=== PATIENT | male | born 1975 | race Caucasian/White ===

== ENCOUNTER 2025-05-22 03:47 | Day surgery (SDC) | payer BC, SELFPAY ==
--- NOTE | 2025-05-20 15:59 | PC.NURSE ---
[facility] has started construction of its new state of the art ER which will open Spring 2026. With this, we anticipate parking may be a challenge for some our surgical patients and families. Parking spaces are limited but are available for all Surgical, obstetrics, and ER patients sharing this lot. If you arrive and find you are having a hard time finding a parking space, please note that we understand the challenges, please drive around the hospital and park near Hospital Entrance 1. When you enter this entrance, you can ask a volunteer to direct or take you back to the surgical waiting area to check in. We appreciate everyone?s understanding of these expected challenges while we build for your future. Report to the Outpatient Waiting Room, entrance under the green pavilion located off [address], at time __1 PM on date __05/22/25 . Planned Procedure Time: _3 PM .? Time changes happen often and if your time is changed the preop area will call you the afternoon before. - You and your visitor will be asked to self-screen and do not enter if you have any COVID symptoms. Please call surgeon if you need to reschedule. - A mask is optional within the hospital at this time. Patients may have clear liquids (water, carbonated beverages, clear teas, apple juice) until 3 hours prior to surgery ( 1200 NOON) with a maximum of 20 ounces. - No food from midnight until time of surgery and no smoking, or chewing tobacco (or any form of nicotine). No chewing gum, candy or mints. Take only the following medications with a SIP of water on the morning of surgery: NONE DO NOT STOP ANY OF YOUR OTHER PRESCRIPTION MEDICATIONS PRIOR TO SURGERY EXCEPT THE FOLLOWING Hold all vitamins and supplements for 3 days per anesthesiologist. Medications to discontinue per physician NONE Date to take last dose Please no make-up, nail equatorial guinean, hairspray, perfume, deodorant, or body powder the day of surgery.? No jewelry (including any body piercings) or valuables the day of surgery, leave them at home.? Please take a shower or bath the night before, or the morning of, surgery with an antibacterial soap.? Wear comfortable, loose fitting clothing.? Children are encouraged to wear pajamas. - Jewelry must be removed prior to entering the operating room.? Rings and piercings that are not removed may be cut off. - The hospital will not accept responsibility for valuables.? - Please leave all valuables, including medications, at home the day of surgery. If you are going home after surgery, a licensed van driver must drive you home.? - NO public transportation without another adult if you receive anesthesia. - We recommend that an adult stay with you for 24 hours following discharge. - We also recommend that you do not drive, make important decision, drink alcoholic beverages, or take any drugs that were not prescribed by your health care provider for at least 24 hours after your discharge time. For Pediatric surgeries, we recommend two adults accompany the child home. Follow any additional instructions given to you from your surgeon. Telephone instructions given to __PATIENT and asked if any additional questions and then verbalized understanding. Patient advised to call surgeon office or pre surgery nurse liaison [phone] if any additional questions.
[2025-05-20 16:07] VITALS: BMI 33.7
--- OUTSIDE RECORDS SUMMARY | 2025-05-22 03:50 | XMS_ITS | Data Portability ---
Author Organization [place] [facility], Main Office Address [address] [place] [address] Assessment Encounter Date Assessment Date Assessment LastModified by Organization Details LastModified Time 10/04/2022 10/04/2022 Blood work Chantix side effects discussed in detail See me in 6 weeks General surgery skin [email or web address] Not available 10/10/2022 12:04:21 03/28/2023 03/28/2023 Urology Needs to go see the general surgeon for his lesion from last visit Get blood work that was not completed last Get colonoscopy Follow-up 6 weeks [email or web address] Not available 03/28/2023 21:55:28 04/19/2023 04/19/2023 large cyst posterior scalp. Options discussed with patient. We will schedule for excision under sedation. Risks and benefits were discussed. Risks include bleeding infection and numbness Not available 04/19/2023 12:19:55 05/17/2023 05/17/2023 Status post excision of posterior scalp cyst. Doing well. We will remove sutures. Follow up p.r.n. Not available 05/17/2023 11:48:04 Plan of Treatment Reminders Order Date Submit Date Provider Last Modified By Organization Details Last Modified Time Details Appointments None recorded. Lab CMP, serum or plasma 2022 023 [facility] (Lab), [address] [place], [address], 08:40:48 CBC w/ auto diff 2022 023 [facility] (Lab), [address] [place], [address], 3 08:40:48 lipid panel, serum 2022 023 [facility] (Lab), [address], [place], [address], 3 08:40:48 Referral urologist referral 2022 023 Dheeraj Galicia MD, [address] [facility] [address], [place], [address], 4 18:34:13 general surgeon referral 2022 023 [email or web address] Tu Tanner MD, [address], [address], [place], [address], 3 11:29:33 Procedures colonoscop y screening (PROC) 2022 023 [email or web address] 82 Dell Tsang MD, [address], [address], [place], [address], 4 14:27:34 Surgeries None recorded. Imaging None recorded. Medication Orders Chantix Continuing Month Box 1 mg tablet 2022 023 [email or web address] 45 [id number], [address], [place], [address], 3 12:17:50 Chantix Starting Month Box 0.5 mg (11)-1 mg (42) tablets in dose pack 2022 023 [email or web address] 45 [id number], [address], [place], [address], 3 12:17:47 Patient TargetsNo targets recorded. Patient InstructionsNo instructions recorded. Reason for Referral General Surgeon Referral for Skin lesion Referring Physician: Krzysztof Seay, Internal Medicine, Encounter Date: 10/04/2022 Urologist Referral for Lesio n of penis Referring Physician: Krzysztof Seay, Internal Medicine, Encounter Date: 03/28/2023 Results Created Date Observation Date Name Description Value Unit Range Abnormal Flag Note LastModifiedBy Organization Detail LastModifiedTime Result Notes None recorded. Problems Name Problem SNOMED Code Status Onset Date Resolution Date Notes Provider Name and Address Organization Details Recorded Time Viral gastroenterit is 638157043 Active Not Available [facility] 3 09:27:26 Nausea and vomiting 21270560 Active Not Available [facility] 3 09:27:26 Sinusitis 84104037 Active Not Available [facility] 3 09:27:26 Cervical radiculopathy 43818636 Active Not Available [facility] 3 09:27:26 Brachial neuritis 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 Procedures Surgical History Date Name Laterality Status Provider Name and Address Organization Details Recorded Time 05/09/2023 excision completed Candi Escalante MA [facility] 05/11/2023 11:36:27 Imaging Results None recorded. Procedure Notes None recorded. Medical Equipment None Reported. Allergies No known drug allergies Medications Name Sig Start Date Stop Date Status Note LastModified by Organization Details LastModified Time Singulair 10 mg tablet Take 1 tablet every day by oral route. 08/20 completed Not Available Not Available Not Available amoxicillin 500 mg capsule Take 1 capsule 3 times a day by oral route for 7 days. active Not Available Not Available No t Available tizanidine 4 mg tablet Take 1 tablet every day by oral route at bedtime. active Not Available Not Available No t Available hydrocodone 5 mg-acetamin ophen 325 mg tablet Take by oral route. 2014 active Not Available Not Available Not Avai lable Claritin 10 mg tablet Take 1 tablet as needed by oral route. 08/20 completed Not Available Not Available Not Available prednisone 20 mg tablet 12/01 completed Not Available Not Available Not Available Flonase 50 mcg/actuati on nasal spray,suspe nsion Inhale 2 sprays every day by intranasa l route in the evening. 08/20 completed Not Available Not Available Not Available acetaminoph en 300 mg-codeine 30 mg tablet TK 1 T PO BID PRN 12/01 completed Not Available Not Available Not Available tramadol 50 mg tablet Take 1 tablet twice a day by oral route. 2014 active Not Available Not Available Not Avai lable ketorolac 0.5 % eye drops active Not Available Not Available Not Available oxycodone-a cetaminophe n 5 mg-325 mg tablet TAKE 1 TABLET BY MOUTH EVERY 4 HOURS NEEDED FOR PAIN active Not Available Not Available No t Available Zofran 8 mg tablet Take 1 tablet every 8 hours by oral route as needed for 2 days. 01/29 completed Not Available Not Available Not Available prednisolon e acetate 1 % eye drops,suspe nsion active Not Available Not Available Not Available Zoloft 50 mg tablet Take 1 tablet every day by oral route. 01/29 completed Not Available Not Available Not Available ciprofloxac in 0.3 % eye drops active Not Available Not Available No t Available diclofenac sodium 75 mg tablet,juan daniel yed release Take 1 tablet twice a day by oral route. active Not Available Not Available No t Available methylpredn isolone 4 mg tablets in a dose pack active Not Available Not Available Not Available Lomotil 2.5 mg-0.025 mg tablet take 1 tablet after each loose stool , max of 6 per day 01/29 completed Not Available Not Available Not Available sildenafil (pulmonary hypertensio n) 20 mg tablet Take 2 tablets by mouth one hour prior to sex as needed. Do not take more than one dose every 24 hours. 11/26 completed Not Available Not Available Not Available varenicline tartrate 1 mg tablet TAKE 1 TABLET BY MOUTH TWICE A DAY DIRECTED active Not Available Not Available No t Available varenicline tartrate 0.5 mg (11)-1 mg (42) tablets in a dose pack USE DIRECTED active Not Available Not Available No t Available Vitals Date Recorded Body height Body mass index (BMI) Body weight Body temperature Heart rate Systolic And Diastolic Provider Name and Address Organization Details Last Updated DateTime 3 177.8 cm 33.1 kg/m2 143318. 84 g 98.1 [degF] 60 /min 118/72 mm[Hg] JESSICA Ordoñez [facility] [employer] 3 14:39:51 Date Recorded Body mass index (BMI) Body height Heart rate Body temperature Body weight Systolic And Diastolic Provider Name and Address Organization Details Last Updated DateTime 2 34.6 kg/m2 177.8 cm 78 /min 98.8 [degF] 366967. 76 g 122/80 mm[Hg] Not Available [facility] 3 15:16:45 Date Recorded Body height Body mass index (BMI) Body weight Body temperature Heart rate Systolic And Diastolic Provider Name and Address Organization Details Last Updated DateTime 3 177.8 cm 32.9 kg/m2 995735. 65 g 99.2 [degF] 65 /min 130/82 mm[Hg] JESSICA Ordoñez [facility] [employer] 3 12:20:14 Date Recorded Body height Body mass index (BMI) Body weight Body temperature Respiratory rate Heart rate Oxygen saturation Systolic And Diastolic Provider Name and Address Organization Details Last Updated DateTime 3 177.8 cm 32.9 kg/m2 091567. 65 g 99.2 [degF] 16 /min 81 /min 98 % 130/90 mm[Hg] Maki Rosado [facility] [employer] 3 11:51:20 Date Recorded Body height Body mass index (BMI) Body weight Body temperature Heart rate Respiratory rate Oxygen saturation Systolic And Diastolic Provider Name and Address Organization Details Last Updated DateTime 3 177.8 cm 32.9 kg/m2 118560. 65 g 98.6 [degF] 80 /min 14 /min 99 % 130/80 mm[Hg] Candi Escalante MA [place] [facility] 3 11:37:38 Social History Question Answer Notes LastModified by Organization Details LastModified Time Tobacco Smoking Status Current Every Day Smoker Not Available [facility] 08/04/2022 15:14:43 Do You Have An Advance Directive? No MIGRATION.030 [id number] Information not available 08/04/2022 Do You Wear A Helmet When Biking? No Does Not Bike MIGRATION.030 [id number] Information not available 08/04/2022 What Is Your Level Of Caffeine Consumption? Moderate MIGRATION.030 [id number] Information not available 08/04/2022 In The 14 Days Before Symptom Onset, Have You Had Close Contact With A Laboratory-conf irmed COVID-19 While That Case Was Ill? No MIGRATION.030 [id number] Information not available 08/04/2022 In The 14 Days Before Symptom Onset, Have You Had Close Contact With A Person Who Is Under Investigation For COVID-19 While That Person Was Ill? No MIGRATION.030 706495 Information not available 08/04/2022 What Type Of Diet Are You Following? REGULAR MIGRATION.030 847724 Information not available 08/04/2022 What Is The Highest Grade Or Level Of School You Have Completed Or The Highest Degree You Have Received? [id number] MIGRATION.300 [id number] Information not available 08/04/2022 Have There Been Any Changes To Your Family Or Social Situation? Yes MIGRATION.030 818248 Information not available 08/04/2022 What Is The Fluoride Status Of Your Home? Unknown MIGRATION.030 721215 Information not available 08/04/2022 Are There Any Guns Present In Your Home? No MIGRATION.0301 [id number] Information not available 08/04/2022 Do You Use Insect Repellent Routinely? Yes MIGRATION.0301 [id number] Information not available 08/04/2022 Where Do You Live? [place]House MIGRATION.030 808035 Information not available 08/04/2022 Do You Have A Medical Power Of [employer] Ticket Checker? No MIGRATION.0301 [id number] Information not available 08/04/2022 What Was The Date Of Your Most Recent Tobacco Screening? 03/28/2023 [email or web address] Information not available 03/28/2023 Do You Have Any Pets? Yes MIGRATION.0301 [id number] Information not available 08/04/2022 What Is Your Relationship Status? MIGRATION.0301 205149 Information not available 08/04/2022 Do You Use Your Seat Belt Or Car Seat Routinely? Yes MIGRATION.0301 [id number] Information not available 08/04/2022 Do You Have Smoke And Carbon Monoxide Detectors In Your Home? Yes MIGRATION.0301 706803 Information not available 08/04/2022 At What Age Did You Start Smoking Tobacco? 44 MIGRATION.0301 334312 Information not available 08/04/2022 Are You Passively Exposed To Smoke? Yes MIGRATION.0301 978534 Information not available 08/04/2022 Are There Any Smokers In Your House? No MIGRATION.0301 075988 Information not available 08/04/2022 How Much Tobacco Do You Smoke? 1 PPD MIGRATION.0301 469055 Information not available 08/04/2022 Do You Use Sunscreen Routinely? Yes MIGRATION.0301 685368 Information not available 08/04/2022 How Many Years Have You Smoked Tobacco? 2 MIGRATION.0301 392847 Information not available 08/04/2022 Have You Recently Traveled Abroad? No MIGRATION.0301 [id number] Information not available 08/04/2022 Have You Used IV Drugs? No MIGRATION.0301 423584 Information not available 08/04/2022 Do You Have Any Dietary Restrictions? No MIGRATION.0301 665013 Information not available 08/04/2022 Sex: Male Functional Status Question Answer Note LastModified by Organizat ion Details LastModified Time Do you use any illicit or recreational drugs? Yes edibles for chronic pain MIGRATION.25921 17679 Information not available 08/04/2022 Do you or have you ever used any other forms of tobacco or nicotine? No MIGRATION.87511 18801 Information not available 08/04/2022 What is your level of alcohol consumption? 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 Occasional MIGRATION.84771 50140 Information not available 08/04/2022 Mental Status Question Answer Note LastModified by Organizat ion Details LastModified Time Do you feel stressed (tense, restless, nervous, or anxious, or unable to sleep at night)? [id number] MIGRATION.[id number] 6 Information not available 08/04/2022 Family History Relationship Description Onset Age of this Age Resolved Age Notes LastModified by Organization Details LastModified Time Father No current problems or disability MIGRATION.658 [id number] Not available 08/04/2022 15:15:32 Mother No current problems or disability MIGRATION.746 [id number] Not available 08/04/2022 15:15:32 Medical History No medical history recorded. Immunizations Vaccine Type Date Status Note Provider Nam e and Address Organization Details Recorded Time Hep B, unspecified formulation 11/03/2022 completed JESSICA Gregorio, [place] [facility] [place] [employer] 11/05/2022 13:39:30 Past Encounters Encounter ID Performer Location Encounter Start Date Encounter Closed Date Diagnosis/Indication Diagnosis SNOMED-CT Code Diagnosis ICD10 Code Diagnosis IMO Codes Diagnosis Note [id number] Krzysztof Seay MD [facility] Internal Med [facility] [address] [address] 01/29/2022 00:00:00 01/30/2022 17:21:55 [id number] Krzysztof Seay MD [facility] Internal Med [facility] [address] [address] 10/04/2022 14:27:43 10/04/2022 15:41:32 Adult health examination 549209123 Z00.00 Skin lesion 23571450 L98 .9 Screening for malignant neoplasm of colon 661408827 Z12.11 Nicotine dependence 5629 4008 Z87.351 [id number] Krzysztof Seay MD [facility] Internal Med [facility] [address] [address] 03/28/2023 11:13:42 03/28/2023 12:57:29 Lesion of penis 191580325 N48.9 Nicotine dependence 5629 4008 Z87.637 [id number] Tu singleton MD [facility] [address] [place] [address] 04/19/2023 11:08:14 04/19/2023 15:34:13 Cyst of scalp 625295234 L72.9 Post Neck [id number] Tu singleton MD [facility] [place] [address] [place] [address] 05/17/2023 11:30:07 05/17/2023 15:21:11 Health Concerns Section Related Observation LastModified by Organization Detai ls LastModified Time None Recorded Concern Status LastModified by Organization Details LastModified Time None Recorded Advance Directives Directive N: Payers Insurance Date Sequence Insurance Name Policy Number Policy Arguelles Covered Member ID Arguelles Member ID Guarantor Name 04/19/2023 1 [employer] - UMR (PPO) 000 Shayne Lopez [id number] Shayne Lopez 04/19/2023 1 UMR [id number] Shayne Lopez [id number] Shayne Lopez 06/07/2023 1 [place] [id number] Shayne Lopez [id number] Shayne Lopez Notes Date Note Type Note Provider Name and Address Organization Details Recorded Time 10/04/2022 text/html Wants to quit smokingSkin lesion Krzysztof Seay MD [address], [facility] [address], [place], [address], [facility] 10/10/2022 12:04:54 03/28/2023 text/html lesions on penisNever did get the generic medication for smoking cessation like to tryStill needs to get his colonoscopy and his blood work doneNeeds his general surgery referral as well Krzysztof Seay MD [address], [facility] [address], [place], [address], [employer] 03/28/2023 21:56:06 04/19/2023 text/html patient complains of lump on back of his head he has had for approximately 2 years. Has become larger. Denies redness or drainage. Does interfere with activities and become sore at times. Tu Tanner MD [address], [place], [address], [place] [facility] 04/19/2023 14:30:26 05/17/2023 text/html No complaints Tu Tanner MD [address] [facility] [address], [place], [address], [place] [facility] [employer] [facility] 05/17/2023 11:48:08
[2025-05-22 12:55] VITALS: BP 159/90; PULSE 75; RESP 18; TEMP 36.3; O2SAT 99
[2025-05-22] MEDS: ACETAMINOPHEN 500 MG TABLET 1000 MG PO (13:22)
[2025-05-22] MEDS: LACTATED RINGERS 1,000 ML 30 ML IV CONT (13:40)
--- NOTE | 2025-05-22 14:23 | P.PNAN_ITS ---
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 Patient Data Age: 49 Gender: M Height: 1.78 m Weight: 109 kg Last Vital Signs Temp 97.4 F L 05/22/25 12:55 Pulse 75 05/22/25 12:55 Resp 18 05/22/25 12:55 BP 159/90 H 05/22/25 12:55 Pulse Ox 99 05/22/25 12:55 O2 Del Method Room Air 05/22/25 12:55 Allergies Allergy/AdvReac Type Severity Reaction Status Date / Time No Known Allergies Allergy Verified 05/22/25 14:15 Home Medications ?Medication ?Instructions ?Recorded ?Confirmed ?Type No Home Medications 05/20/25 05/20/25 H istory Patient hx anesthesia problems: none Family hx anesthesia problems: none Results Review: All pre-operative results and documents have been reviewed as part of the pre- operative evaluation. [facility] Social History Social History Smoking packs per day: 0.75 Smoking cigarettes per day: 15.0 Years smoked: 4 Smoking pack-years: 3.00 Smoking status: Current every day smoker Tobacco type: cigarettes Alcohol intake: current Drinks per week: 6 Alcohol use details: BEER Living arrangements: with family Spiritual care concerns: No Anes - Eval Final PreProcedure Day of Procedure 05/22/25 14:23 Patient weight: obese Lungs: normal air movement Airway: Mallampati scale class II Neurological: alert and oriented Last oral intake: >/= 8 hours ASA classification: II Emergent: no Anesthetic plan: proceed Anesthesia type and monitoring: general LMA and standard monitoring Results Review: All pre-operative results and documents have been reviewed as part of the pre- operative evaluation. BMI 34, smoker 1/2 ppd, overall active without cp or sob. Informed Consent: The patient's anesthetic plan and its attendant risks and benefits were discussed with the patient/family/POA. Questions were solicited and answers provided to the satisfaction of the patient/family/POA.
--- NOTE | 2025-05-22 14:33 | WPDHPUPDATE1 ---
History and Physical Update Update Date/Time: 05/22/25 14:33 History and Physical has been reviewed, including an updated exam of the patient. There are NO changes in the patient's condition. Risks, benefits, and alternatives have been discussed and questions answered. Patient agrees to proceed with procedure.
[2025-05-22] MEDS: ceFAZolin 2 GM in SODIUM CHLORIDE 0.9% IV 50 ML 100 ML IVPB (14:54)
--- NOTE | 2025-05-22 15:11 | S_PTH ---
PATIENT: Shayne Lopez LOC: [facility] U#:[id number] AGE/SX: 49/M ROOM: RE05/22/[address]: Miladys Burger MD : 1975 BED: DIS: 05/22/2025 SPEC #: [id number] RECD: 05/23/25 08:15 STATUS: DEACON REColin #: [id number] ALMITA: 05/22/25 15:[address]: Miladys Burger DEPT: [facility] Surgical RECD BY: Umu Bergman ENTERED: 05/23/25 08:15 SP TYPE: Surgical OTHR DR: Krzysztof SeayMD Tissues: A - Skin Procedures: Immunoperoxidase Hematoxylin and Eosin Stain Gross and Microscopic Level 4
[2025-05-22 15:29] VITALS: BP 148/93; PULSE 73; RESP 12; TEMP 36.1; O2SAT 97
[2025-05-22 15:40] VITALS: BP 138/68; PULSE 75; RESP 16; O2SAT 94
--- NOTE | 2025-05-22 15:42 | W.PM.PROC2 ---
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 Patient in the afternoon. He was given preoperative IV antibiotics. He was induced anesthesia. he was prepped and draped in the normal sterile fashion in the dorsal lithotomy position. The patient had 2 larger lesions noted ( approximately 2cm each) that were cut and the base cauterized with the CO2 laser. We then identified additional 20 lesions measuring 1 to 10mm size that were destroyed with the CO2 laser. We then applied acidic acid inspected again carefully and no distal lesions were identified. We performed additional CO2 lasering of the base of the lesions to assist in hemostasis. Antibiotic ointment was applied. Patient was then awakened and taken to recovery room stable condition Pathology Yes Complications No immediate complications Condition Stable Disposition PACU
[2025-05-22 15:55] VITALS: BP 150/72; PULSE 65; RESP 16; O2SAT 93
[2025-05-22 16:00] VITALS: BP 153/77; PULSE 62
[2025-05-22 16:30] VITALS: BP 147/83; PULSE 51
--- NOTE | 2025-05-22 16:54 | SUR.PHASEII ---
Patient vitals are stable. He is unhooked from monitors and waiting on ride.
== END 2025-05-22 16:57 | disposition home or self-care (01) ==
PROVIDERS: PCP Internal Medicine; Visit Provider Urology
PROC: (CPT 54065; principal; 2025-05-22 15:00)
DX: A63.0 Anogenital (venereal) warts (principal); F17.210 Nicotine dependence, cigarettes, uncomplicated; E66.9 Obesity, unspecified; Z68.34 Body mass index [BMI] 34.0-34.9, adult; L91.8 Other hypertrophic disorders of the skin
CPT/HCPCS: 54065; 11200; 88305; 88342; J0690; A9270; J1100; J2405; J2704; J3010; J7120